=== PATIENT | male | born 1955 | race Two or more races ===

== ENCOUNTER 2019-03-30 20:02 | Emergency (ER) | payer OTHER, MEDICAID ==
[~2019-03-30] VITALS: Ht 175.3 cm; Wt 90.7 kg
[2019-03-30 20:22] VITALS: BP 118/70
== END 2019-03-31 00:45 | disposition left against medical advice (07) ==
LOC: ER 20:02
DX: M25.561 Pain in right knee (principal); Z53.21 Procedure and treatment not carried out due to patient leaving prior to being seen by health care provider
CPT/HCPCS: 73562

== ENCOUNTER 2019-09-03 18:47 | Emergency (ER) | payer OTHER, MEDICAID ==
[~2019-09-03] VITALS: Ht 167.6 cm; Wt 90.7 kg
[2019-09-03 19:06] VITALS: BP 124/73
[2019-09-03] MEDS ORDERED: KETOROLAC TROMETH 60MG/2ML VIAL IM ONE (20:00)
== END 2019-09-03 20:57 | disposition home or self-care (01) ==
LOC: ER 18:47
DX: S62.201A Unspecified fracture of first metacarpal bone, right hand, initial encounter for closed fracture (principal); X58.XXXA Exposure to other specified factors, initial encounter; Y93.89 Activity, other specified; Y92.89 Other specified places as the place of occurrence of the external cause; Y99.8 Other external cause status
CPT/HCPCS: 29125; 73110; 73130; 96372; 99284; J1885

== ENCOUNTER 2021-04-12 10:24 | Emergency (ER) | payer OTHER, MEDICAID ==
[~2021-04-12] VITALS: Ht 175.3 cm; Wt 89.8 kg
[2021-04-12] MEDS ORDERED: FLUORESCEIN SOD OPTH TEST STRIP OP ONE (11:30)
[2021-04-12] MEDS ORDERED: TETRACAINE HCL 0.5% OPTH(EYE) SOLN 4ML EACHEYE ONE (11:30)
[2021-04-12 11:40] VITALS: BP 124/64
[2021-04-12] MEDS ORDERED: CIP03OS RIGHTEYE (12:06)
[2021-04-12] MEDS ORDERED: KETO0.4S RIGHTEYE (22:25)
== END 2021-04-12 12:26 | disposition home or self-care (01) ==
LOC: ER 10:24
DX: T15.01XA Foreign body in cornea, right eye, initial encounter (principal); W26.8XXA Contact with other sharp object(s), not elsewhere classified, initial encounter; Y93.89 Activity, other specified; Y92.89 Other specified places as the place of occurrence of the external cause; Y99.8 Other external cause status
CPT/HCPCS: 65222

== ENCOUNTER 2021-04-12 21:00 | Emergency (ER) | payer OTHER, MEDICAID ==
[~2021-04-12] VITALS: Ht 175.3 cm; Wt 85.3 kg
[~2021-04-12 21:00] MED LIST: CIP03OS RIGHTEYE
[2021-04-12] MEDS ORDERED: KETOROLAC TROMETH 30 MG/ML 1ML VIAL IM ONE (22:15)
[2021-04-12] MEDS ORDERED: KETO0.4S RIGHTEYE (22:25)
[2021-04-12 22:26] VITALS: BP 111/69
== END 2021-04-12 22:35 | disposition home or self-care (01) ==
LOC: ER 21:00
DX: S05.01XD Injury of conjunctiva and corneal abrasion without foreign body, right eye, subsequent encounter (principal); E78.5 Hyperlipidemia, unspecified; Z79.899 Other long term (current) drug therapy; X58.XXXD Exposure to other specified factors, subsequent encounter
CPT/HCPCS: 96372; 99283; J1885